=== PATIENT | male | born 1980 | race Caucasian/White ===

== ENCOUNTER → 2020-09-19 14:27 | Outpatient (CLI) | payer OTHER, SELFPAY ==
--- NOTE | 2020-09-19 | DI.US.S_ITS ---
PROCEDURE: US SCROTUM INDICATIONS: HEMATOSPERMIA TECHNIQUE: Real-time scanning was performed of the scrotum and testicles, with image documentation. Color and pulse Doppler interrogation was performed of both testicles. COMPARISON: None. FINDINGS: Right: Testicle is normal in size at 4.4 x 3.7 x 2.2 cm, and homogenous in echotexture. Epididymis is normal in overall size and morphology. Sub 5 mm epididymal cyst No hydrocele or varicoceles. Overlying scrotal skin is normal in thickness. Left: Testicle is normal in size at 4.6 x 3.0 x 2.3 cm, and homogeneous in echotexture. Mildly heterogeneous left epididymis with mild increased vascularity. 6 mm epididymal head cyst.. No hydrocele or varicoceles. Overlying scrotal skin is normal in thickness. Doppler: Color and pulse Doppler demonstrate normal and symmetric arterial flow in both testicles. IMPRESSION: 1. Normal appearance of the testicles bilaterally. 2. Mild heterogeneity of the left epididymis with mild vascularity which could be related to early developing epididymitis. Correlate clinically. 3. Bilateral epididymal cyst. Dictated by: Dashawn NUÑEZ Interpreted: Hector Benedict MD on 09/19/2020 at 16:01 Transcribed by: ANTONINO on 09/19/2020 at 16:03 Approved by: Hector Benedict M.D. on 09/19/2020 at 16:36
== END ==
PROVIDERS: PCP Physician Assistant; Referring Provider Physician Assistant; Visit Provider Physician Assistant
DX: R36.1 Hematospermia (principal); N50.3 Cyst of epididymis
CPT/HCPCS: 76870

== ENCOUNTER → 2020-10-20 15:06 | Outpatient (CLI) | payer OTHER, SELFPAY ==
[2020-10-20 16:16] LABS: COVID19 -Nasal RAPID Negative (Negative)
== END ==
PROVIDERS: PCP Physician Assistant; Visit Provider Surgery
DX: Z01.812 Encounter for preprocedural laboratory examination (principal); Z20.822 Contact with and (suspected) exposure to COVID-19
CPT/HCPCS: 87635; C9803

== ENCOUNTER 2020-10-23 08:41 | Day surgery (SDC) | payer OTHER, SELFPAY ==
--- NOTE | 2020-10-23 | PATH_ITS ---
[facility] Accession Number: [id number] . 01 Material submitted: . PART A: cecum - CECAL POLYP BIOPSY PART B: rectum - RECTAL POLYP BIOPSY . 02 Diagnosis: A. Cecum, Polyp, Biopsy: Favor inflammatory polyp. Additional levels were examined. Negative for dysplasia and malignancy. . B. Rectum, Polyp, Biopsy: Mucosal prolapse polyp. Negative for dysplasia and malignancy. MRV 10/26/2020 1312 Local . 02 Electronically signed: . Erika Crawley MD, Pathologist NPI- [id number] . 01 Gross description: . Part A: CECAL POLYP BIOPSY: Received in formalin is 1 fragment(s) of finley, soft tissue measuring 0.3 x 0.3 x 0.1 cm submitted entirely in 1 cassette(s) Part B: RECTAL POLYP BIOPSY: Received in formalin is 1 fragment(s) of finley, soft tissue measuring 0.5 x 0.4 x 0.3 cm submitted entirely in 1 cassette(s) /BUTCH 10/24/2020 0510 Local . 02 Pathologist provided ICD-10: R19.4 . 02 CPT . 727630, [id number] Performed at: 01 [facility] [address], [place], [place] [id number] MD Kostas Garcia MD Phone: [phone] Performed at: 02 [facility] [address] [place], [place] [id number] MD Erika Crawley MD Phone: [phone]
[2020-10-23 09:14] VITALS: BP 144/97; PULSE 83; RESP 14; TEMP 36.8; O2SAT 99; BMI 24.0
[2020-10-23] MEDS: LACTATED RINGERS 1,000 ML 42 ML IV (09:30)
--- NOTE | 2020-10-23 09:47 | PM.PREOP ---
Pre-operative Note Interval Note History & Physical reviewed/Exam performed by Physician: Yes Changes to H&P: No
[2020-10-23] MEDS: fentaNYL 250 MCG/5 ML INJ IV (09:52)
[2020-10-23] MEDS: MIDAZOLAM 5 MG/5 ML VIAL IV (09:52)
--- NOTE | 2020-10-23 10:13 | PM.OP.ENDO ---
Operative Date/Time/Diagnoses Date of procedure: 10/23/20 Time of procedure: 10:14 Pre-op diagnosis: change in bowel habit Post-op diagnosis: other (polyposis) Procedure & Clinicians Study performed: colonoscopy and polypectomy Same procedure as scheduled: Yes Indications: change in bowel function Surgeon: Boni Mendoza Procedure Notes Procedure in detail: Medications: Conscious sedation using 8mg IV midazolam and 200mcg IV of fentanyl The history and physical was performed/updated and the patient is ASA class is 1 The procedure was discussed in detail with the patient. Potential risks complications including infection, bleeding, missed diagnosis, perforation, need for surgery, and were explained. Their questions were answered and informed consent was obtained. Patient was brought to the procedure room and placed standard monitoring equipment. The patient's vital signs were monitored continuously throughout the entire procedure. Prior to starting time-out was performed. The patient was placed in the left lateral recumbent position. Procedural sedation was administered. Examination began with a thorough inspection of the perianal area there was no evidence of fissures, fistulae, external hemorrhoids or cutaneous malignancy. The colonoscopy scope was then placed into the anal canal and was advanced to the cecum, which was identified by the ileocecal valve, the appendiceal orifice and the confluence of the taenia. The scope was then slowly withdrawn examining colon thoroughly in all directions, irrigating it of any residual stool. FINDINGS 1. Polyposis of the colon. Primarily within the rectum but throughout. Hundreds to thousands. Polyps sampled with biopsy forceps from cecum and rectum 2. No masses The patient tolerated the procedure well. They will be discharged once criteria are met. The prep was of good/excellent quality. The withdrawl time was 7 minutes. The sedation time was 20 minutes.8 Specimen(s): other (cecum and rectum) Complications: none Impression: polyposis Post-procedure Plan for aftercare: will refer to gastroenterology for further management Disposition: same day surgery
[2020-10-23 10:14] VITALS: BP 123/87; PULSE 72; RESP 14; TEMP 36.3; O2SAT 96
[2020-10-23 10:19] VITALS: BP 113/78; PULSE 68; RESP 12; O2SAT 95
[2020-10-23 10:24] VITALS: BP 116/78; PULSE 68; RESP 18; O2SAT 95
[2020-10-23 10:29] VITALS: BP 118/84; PULSE 82; RESP 10; O2SAT 97
[2020-10-23 10:40] VITALS: BP 118/92; PULSE 72; RESP 10; TEMP 36.5; O2SAT 99
== END 2020-10-23 11:30 | disposition home or self-care (01) ==
PROVIDERS: PCP Physician Assistant; Referring Provider Surgery; Visit Provider Surgery
PROC: 0DJD8ZZ Inspection of Lower Intestinal Tract, Via Natural or Artificial Opening Endoscopic (ICD-10-PCS; CPT 45378; principal; 2020-10-23 10:00)
DX: R19.4 Change in bowel habit (principal); R63.4 Abnormal weight loss; F17.210 Nicotine dependence, cigarettes, uncomplicated; K63.5 Polyp of colon; K62.1 Rectal polyp
CPT/HCPCS: 45380; 99152; J2250; J3010